=== PATIENT | male | born 1965 ===

== ENCOUNTER 2019-07-16 12:18 | Emergency (ER) | payer OTHER ==
[~2019-07-16] VITALS: Ht 180.3 cm; Wt 98.9 kg
[~2019-07-16 12:18] MED LIST: INTESTINEX1 CA1 PO; OSEL75CA PO; PROTONIX40 MG PO
== END 2019-07-16 16:28 | disposition home or self-care (01) ==
LOC: ER 12:18
DX: S30.0XXA Contusion of lower back and pelvis, initial encounter (principal); W18.39XA Other fall on same level, initial encounter; Y93.89 Activity, other specified; Y92.89 Other specified places as the place of occurrence of the external cause; Y99.8 Other external cause status